=== PATIENT | male | born 1985 | race African-American/Black ===

== ENCOUNTER 2019-06-14 06:00 | Day surgery (SDC) | payer MEDICAID ==
[2019-06-13 16:23] LABS: BASOPHILS 0.1 % (0-2); EOSINOPHILS 4.9 % (0-7); HEMATOCRIT 38.7 % (42.0-54.0); HEMOGLOBIN 12.7 g/dL (13.5-17.5); IMMATURE GRANULOCYTES 0.3 % (0-5); MCH 29.5 pg (26.0-34.0); MCHC 32.8 g/dL (31.0-37.0); MEAN PLATELET VOLUME 9.8 fL (7.4-10.4); MONOCYTES 8.9 % (2-11); NEUTROPHILS 74.8 % (40-80); PLATELET COUNT 288 10x3/uL (130-400); RDW 14.8 % (11.5-14.5); WBC 9.6 10x3/uL (4.8-10.8)
[2019-06-13 16:39] LABS: INR 1.15 (0.85-1.17); PROTIME 14.2 SECONDS (11.6-15.0)
[2019-06-13 16:41] LABS: ANION GAP 16.9 mmol/L (8-16); CALCIUM 9.3 mg/dL (8.5-10.1); CARBON DIOXIDE 27.4 mmol/L (21.0-32.0); CREATININE - SERUM 12.9 mg/dL (0.6-1.3); POTASSIUM - SERUM 4.3 mmol/L (3.5-5.1)
[~2019-06-14] VITALS: Ht 175.3 cm; Wt 108.2 kg
--- NOTE | ~2019-06-14 | OP ---
PATIENT NAME: KENNY LAMB III MEDICAL RECORD: [id number] LOCATION:[facility] ADMISSION DATE: SURGEON: ABDIRAHMAN VASQUES MD DATE OF OPERATION: 06/14/2019 REFERRED BY: Ashok Sanderson MD PREOPERATIVE DIAGNOSES: End-stage renal disease and dependence on hemodialysis. POSTOPERATIVE DIAGNOSES: End-stage renal disease and dependence on hemodialysis. OPERATION PERFORMED: Creation of a left arm brachial artery to translocated cephalic vein arteriovenous fistula. SURGEON: Abdirahman Vasques MD ANESTHESIA: Nerve block and MAC per MACHINE BANDER AND CELLOPHANER. PREOPERATIVE NOTE: Mr. Lamb is a 34-year-old -[place] male with end-stage renal disease who needs long-term access. He is a husky shara, muscular with large subcutaneous veins. He is right handed and he is to have a fistula created in the left arm. I believe we can make a radiocephalic fistula at the wrist based on physical exam and the preoperative vein mapping from [facility]. DESCRIPTION OF PROCEDURE: Under anesthesia in supine position, the patient was prepped and draped in sterile manner. Topical nitroglycerin ointment was applied and a Marianna drain was used as a proximal venous tourniquet and I examined the vasculature with Duplex Ultrasound The radial artery at the wrist was disappointingly small and the cephalic vein, although large proximally had so many branches, but they too were fairly small by the time they reached the level of the wrist, but I thought that I could still go ahead with the radiocephalic. In the antecubital space, the basilic vein and the cephalic vein and median cubital veins 1 for each were very large and the brachial artery appeared small. It was difficult to identify the origin of the radial artery. I made a longitudinal incision at the wrist and exposed the cephalic vein at least 2 branches and I found that the radial artery was quite small and the veins went into an intense spasm despite the nerve block and the use of topical papaverine. I abandoned this approach and went up to the elbow. I made a transverse incision and exposed the median cubital vein and cephalic vein and the basilic vein and then exposed the brachial artery, which actually proved to be a very small radial artery with an aberrant proximal origin. The brachial artery itself was quite deep and it was necessary to mobilize the median nerve in order to expose the vessel and I actually had to raise a flap and move up on to the brachial artery just above the antecubital space in order to be able to mobilize it adequately and safely. This meant, I found that the fistula would really be a translocated cephalic vein and I actually used both the median cubital veins. I ligated the deep professor of floriculture vein, and ligated and divided the median antebrachial vein and prepared the proximal end of the basilic median cubital for anastomosis to the artery. The basilic vein itself was entirely preserved for possible future use for dialysis access. The artery was occluded with Silastic loops. A small arteriotomy was made and the artery flushed proximally and distally with heparinized saline. The vein OPERATIVE REPORT [id number] ADONIS,KENNY TALBOT III was then anastomosed end-to-side, end of vein to side of artery with continuous running 7-0 Prolene and when completed and the occluding loops and clamps released, the suture line was hemostatic. Excellent flow developed immediately within the fistula with a palpable thrill and pulsation which was very satisfactory. There was preservation of pulsatile Doppler flow in the brachial artery distally and in the radial artery at the wrist. The wounds were irrigated with saline and then closed with interrupted inverted 3-0 Vicryl and running intracuticular 4-0 Stratafix and Dermabond glue. The incisions were dressed with Maxorb Ag, Tegaderm, and Cavilon skin prep and the patient awakened and returned to the outpatient department in stable condition. Blood loss was only about 5 cc. None was replaced. Sponges, instruments, and needles were accounted for. No drain was necessary. Mr. Lamb will go home today and follow up with me in my office in 2 weeks. He is to leave the initial operative dressings intact and keep them clean and dry as long as possible. When necessary, he may change the dressings and simply cover the wounds with a clean, dry gauze as needed. He is given a prescription for 20 tablets of Ione 5/325 to take 1 or 2 p.o. q.4 hours p.r.n. for pain. He is in a sling and is to wear the sling until tonight or tomorrow morning when the effects of the nerve block will have worn off and then he will resume activities as tolerated using his left arm. I actually have high expectations that this fistula will mature rapidly and provide good access for this gentleman. TRANSINT:[id number] Voice Confirmation ID: [id number] DOCUMENT ID: [id number] Cc: ABDIRAHMAN Shah MD CC: ASHOK SANDERSON MD [id number] DICTATION DATE: 06/14/19 1115 FINANCIAL COST ANALYST: 06/14/19 1559 [facility] 06/14/19 [facility] [address] [place] [address]
[~2019-06-14 06:00] MED LIST: CARDURA4 MG PO; LIPITOR40 MG PO; LISINOPRIL20 MG PO; NORMODYNE / TR200 MG; NORVASC10 MG PO; RENVELA800 MG PO; ROCALTROL0.25 MCG PO
[2019-06-14 06:24] VITALS: Ht 175.3 cm; Wt 108.2 kg
--- NOTE | 2019-06-14 10:17 | NUR ---
0940 IN ERROR ENTERED ANOTHER PATIENT'S INFORMATION ON ASIS PILGRAM. ATTEMPTED TO EDIT & DELETE THE INFORMATION. UNSURE IF IT IS ACTUALLY EDITED CORRECTLY. Dayan BEAL R.N.
[2019-06-14] MEDS ORDERED: HYDROCODON-ACE1 EAC7 PO (10:50)
--- NOTE | 2019-06-14 14:05 | NUR ---
1230 IV DC'DW ITH CATH INTACT BY Amirah BUTTS R.N. PT DRESSING. 1250 PT DRESSED. AWAKE & ALERT. GIVEN DISCHARGE INFORMATION INCLUDING: MED REC, RX: NORCO 5/325MG, RTC APPT., [facility] D/C INSTRUCTIONS & INFORMATION FOR DIALYSIS DIET & AV FISTULA FOR DIALYSIS FOR D/C INSTRUCTIONS. PT VOICED UNDERSTANDING. TO PRIVATE CAR PER WHEELCHAIR BY STAFF. HOME WITH SISTER. AhmetGina BEAL R.N.
== END 2019-06-14 12:50 | disposition home or self-care (01) ==
LOC: D.OPS 06:00 → D.PAN 08:00 → D.OPS 08:00
PROVIDERS: Surgery; ATTEND Internal Medicine Nephrology
DX: N18.6 End stage renal disease (principal); Z99.2 Dependence on renal dialysis; I12.0 Hypertensive chronic kidney disease with stage 5 chronic kidney disease or end stage renal disease